=== PATIENT | female | born 1965 | race Two or more races ===

== ENCOUNTER 2017-02-08 13:25 | Emergency (ER) | payer MEDICAID ==
[~2017-02-08] VITALS: Ht 157.5 cm; Wt 68.0 kg
[2017-02-08 13:39] VITALS: BP 115/77
--- NOTE | 2017-02-08 14:23 | Emergency Room Report ---
History of Present Illness General Chief Complaint: Upper Respiratory Illness Source: Patient Present Illness HPI 51-year-old female presents emergency department complaining of productive cough times one month unresponsive to [id number] therapies. Patient denies fevers or chills patient denies abdominal pain rashes, nausea, vomiting, history of immunocompromise. Patient states she was seen on an urgent care and was prescribed cough medicine however it was too strong and made her sleepy. Patient states she has been trying other homeopathic cough syrups with no relief. 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 Patient states she is here for evaluation and is requesting chest x-ray that she is worried she may have pneumonia. She denies night sweats, changes in weight, blood in the sputum. Pt. reports nasal congestion,denies sore throat. Denies CP, Palpitations, LOC, AMS, dizziness, Changes in Vision, Sensation, paresthesias, or a sudden severe headache. Allergies: Coded Allergies: PENICILLINS (Verified Allergy, Severe, 07/11/15) CODEINE (Verified Allergy, Intermediate, 07/11/15) Patient History Past Medical History: see triage record Past Surgical History: none Pertinent Family History: none Last Menstrual Period: 01/13/2017 Now: No Reviewed Nursing Documentation: PMH: Agreed, PSxH: Agreed Nursing Documentation-PMH Past Medical History: No History, Except For Hx Cardiac Problems: Yes - left bundle branch block Review of Systems All Other Systems: negative except mentioned in HPI Physical Exam Vital Signs Date Time Temp Pulse Resp B/P Pulse Ox O2 Delivery O2 Flow Rate FiO2 02/08/17 13:30 98.1 89 16 115/77 98 Room Air Sp02 EP Interpretation: reviewed, normal General Appearance: no apparent distress, alert, GCS 15, non-toxic Head: normocephalic, atraumatic Eyes: bilateral eye PERRL, bilateral eye normal inspection ENT: hearing grossly normal, normal pharynx, no angioedema, normal voice Neck: full range of motion, supple/symm/no masses Respiratory: chest non-tender, lungs clear, normal breath sounds, no rhonchi, no retraction, no accessory muscle use, no wheezing, speaking full sentences Cardiovascular #1: regular rate, rhythm, no edema Musculoskeletal: back normal, gait/station normal, normal range of motion, non- tender Neurologic: alert, oriented x3, responsive, motor strength/tone normal, sensory intact, speech normal Psychiatric: judgement/insight normal, memory normal, mood/affect normal Skin: normal color, no rash, warm/dry, well hydrated Lymphatic: no adenopathy Medical Decision Making PA Attestation Dr. Baumann is my supervising Physician whom patient management has been discussed with. Diagnostic Impression: Primary Impression: Atypical pneumonia ER Course 51-year-old female presents emergency department complaining of productive cough times one month unresponsive to rijo-gne-pwgygis therapies. Patient denies fevers or chills patient denies abdominal pain rashes, nausea, vomiting, history of immunocompromise. Patient states she was seen on an urgent care and was prescribed cough medicine however it was too strong and made her sleepy. Patient states she has been trying other homeopathic cough syrups with no relief. 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 Patient states she is here for evaluation and is requesting chest x-ray that she is worried she may have pneumonia. She denies night sweats, changes in weight, blood in the sputum. Pt. reports nasal congestion,denies sore throat. Denies CP, Palpitations, LOC, AMS, dizziness, Changes in Vision, Sensation, paresthesias, or a sudden severe headache. Ddx considered but are not limited to URI, pneumonia, PE, strep pharyngitis, meningitis. Vital signs: Pt. is afebrile, the remaining VS are WNL H&PE are most consistent with Atypical pneumonia- no meningeal signs, oropharynx is not involved. suspicious for atypical pneumonia due to no relief from 4 weeks of conservative treatments. ORDERS: -CXR 1 view: No consolidation, effusion, pneumothorax or acute cardiopulmonary findings per soft read in ED by Dr. Baumann ED INTERVENTIONS: None required at this time. DISCHARGE: At this time pt. is stable for d/c to home. Will provide printed patient care instructions, and any necessary prescriptions. Care plan and follow up instructions have been discussed with the patient prior to discharge. Last Vital Signs Date Time Temp Pulse Resp B/P Pulse Ox O2 Delivery O2 Flow Rate FiO2 02/08/17 13:47 89 16 Room Air 02/08/17 13:39 98.1 115/77 98 Disposition: HOME, SELF-CARE Condition: Stable Scripts Benzonatate* (TESSALON PERLE*) 100 Mg Capsule 100 MG ORAL THREE TIMES A DAY for 5 Days, #20 PERLE Prov: Griselda Mckeon 02/08/17 Azithromycin* (ZITHROMAX*) 250 Mg Tablet 250 MG ORAL DAILY for 5 Days, #6 TAB Prov: Griselda Mckeon 02/08/17 Referrals: [facility],REFERRING (PCP) Patient Instructions: Upper Respiratory Infection, Adult Additional Instructions: Take medications as directed. Follow up with PCP in 3-5 days Return sooner to ED if new symptoms occur, or current symptoms become worse. - Please note that this Emergency Department Report was dictated using [employer] technology software, occasionally this can lead to erroneous entry secondary to interpretation by the dictation equipment. Griselda Mckeon February 08, 2017 14:23
[2017-02-08] MEDS ORDERED: ZITHROMAX250 MG ORAL (14:55)
[2017-02-08] MEDS ORDERED: TESSALON PERLE100 MG ORAL (14:55)
[2017-02-08 15:08] VITALS: BP 110/78
[2017-02-08 15:09] VITALS: BP 115/77
--- NOTE | 2017-02-09 11:53 | Diagnostic Imaging Report ---
Indication: COUGH Technique: Single AP view of the chest. Findings: Comparison: 05/29/06 Mild levoscoliosis again noted in upper thoracic spine. The bones and extra pulmonary soft tissues, cardiomediastinal silhouette, pulmonary vasculature and parenchyma, and pleural surfaces remain otherwise unremarkable. IMPRESSION: Stable mild scoliosis Otherwise negative AP chest, unchanged.
== END 2017-02-08 15:21 | disposition home or self-care (01) ==
LOC: EMR 13:45
DX: J18.9 Pneumonia, unspecified organism (principal); Z88.0 Allergy status to penicillin; Z88.6 Allergy status to analgesic agent; M41.9 Scoliosis, unspecified
CPT/HCPCS: 71010; 99284